=== PATIENT | female | born 1980 | race Caucasian/White ===

== ENCOUNTER → 2019-03-24 | Outpatient (CLI) | payer OTHER ==
[~2019-03-24] MED LIST: ACAI BERRY; KEPPRA 500MG500 MG PO; MECLIZINE; SLOW FE45 MG PO; [UNRECOGNIZED DRUG - OTHER] PO
== END ==
LOC: MC.RAD 03-22 10:00
DX: Z12.31 Encounter for screening mammogram for malignant neoplasm of breast (principal)

== ENCOUNTER → 2020-04-15 | Outpatient (CLI) | payer OTHER | LOC: MC.RAD 13:45 | DX: Z12.31 Encounter for screening mammogram for malignant neoplasm of breast (principal) ==

== ENCOUNTER → 2021-09-09 | Outpatient (CLI) | payer OTHER | LOC: MC.RAD 08:50 | DX: Z12.31 Encounter for screening mammogram for malignant neoplasm of breast (principal); N63.20 Unspecified lump in the left breast, unspecified quadrant ==

== ENCOUNTER → 2021-09-17 | Outpatient (CLI) | payer OTHER | LOC: MC.RAD 12:47 | DX: N63.20 Unspecified lump in the left breast, unspecified quadrant (principal) ==

== ENCOUNTER → 2022-05-05 | Outpatient (CLI) | payer OTHER | LOC: MC.RAD 07:45 | DX: N63.20 Unspecified lump in the left breast, unspecified quadrant (principal) ==

== ENCOUNTER 2024-01-01 07:29 | Emergency (ER) | payer BC ==
[~2024-01-01] VITALS: Ht 167.6 cm; Wt 90.9 kg
[~2024-01-01 07:29] MED LIST changes: +CLARITIN 1010 MG/TAB; +LAMICTAL 25MG T25 MG PO; +OZEMPIC0.25 MG/02 SQ
[2024-01-01 07:34] VITALS: BP 111/70; TEMP 98.4
[2024-01-01] MEDS ORDERED: PREDNISONE20 MG PO (07:58)
[2024-01-01] MEDS ORDERED: predniSONE 20 MG TAB PO ONE (08:00)
[2024-01-01 08:23] VITALS: PULSE 103
== END 2024-01-01 08:23 | disposition home or self-care (01) ==
LOC: COL.ER 07:29
DX: L50.9 Urticaria, unspecified (principal)
CPT/HCPCS: J7512